=== PATIENT | male | born 1945 | race Two or more races ===

== ENCOUNTER 2020-01-29 12:05 | Inpatient (IN) | payer MEDICAID ==
[~2020-01-29] VITALS: Ht 165.1 cm; Wt 68.0 kg
--- NOTE | 2020-01-29 12:40 | NUR ---
ED Nurse Note: Pt brought into ED by caregiver from home. Pt fell 10 days ago and landed on face per caregiver. Pt since fall has bilateral sided weakness on hands and feet. Pt is alert and ox4, slovak speaking, wants caregiver to trasnlate.
[2020-01-29 12:46] VITALS: BP 122/57
[2020-01-29 13:31] LABS: BASOPHILS % (AUTO) 0.7 % (0.0-2.0); EOSINOPHILS % (AUTO) 2.2 % (0.0-3.0); HEMATOCRIT 38.2 % (42.0-52.0); HEMOGLOBIN 12.4 G/DL (14.2-18.0); LYMPHOCYTES % (AUTO) 20.1 % (20.0-45.0); MEAN CORPUSCULAR VOLUME 94 FL (80-99); MONOCYTES % (AUTO) 6.5 % (1.0-10.0); NEUTROPHILS % (AUTO) 70.5 % (45.0-75.0); PLATELET COUNT 232 K/UL (150-450); RED BLOOD COUNT 4.08 M/UL (4.70-6.10); RED CELL DISTRIBUTION WIDTH 13.7 % (11.6-14.8); WHITE BLOOD COUNT 7.9 K/UL (4.8-10.8)
[2020-01-29 13:43] LABS: ANION GAP 7 mmol/L (5-15); BLOOD UREA NITROGEN 13 mg/dL (7-18); CARBON DIOXIDE 27 MMOL/L (21-32); CHLORIDE 112 MMOL/L (98-107); CREATININE 0.8 MG/DL (0.55-1.30); POTASSIUM 3.4 MMOL/L (3.5-5.1); SODIUM 146 MMOL/L (136-145)
[2020-01-29 13:54] LABS: ALANINE AMINOTRANSFERASE 23 U/L (12-78); ALBUMIN 3.1 G/DL (3.4-5.0); ALBUMIN/GLOBULIN RATIO 0.8 (1.0-2.7); ALKALINE PHOSPHATASE 102 U/L (46-116); ASPARTATE AMINO TRANSFERASE 34 U/L (15-37); BILIRUBIN,TOTAL 0.4 MG/DL (0.2-1.0)
--- NOTE | 2020-01-29 13:54 | Diagnostic Imaging Report ---
Indication: Headache/pain after trauma Technique: Continuous helical CT scanning of the head was performed utilizing automated exposure control without intravenous contrast material. Axial and coronal reconstructions were obtained. Comparison: None CT dose: Total DLP 1045.5 mGycm; CTDI vol 53.4 mGy Findings: There is no acute intracranial hemorrhage, mass effect or cortical edema. The ventricles, cisterns and sulci are prominent consistent with atrophy. Periventricular hypoattenuation is seen, a nonspecific finding. Visualized mastoid air cells and paranasal sinuses are unremarkable. No focal lesions of the bony calvarium or soft tissues of the scalp are seen. IMPRESSION: No evidence of acute intracranial hemorrhage, mass effect or cortical edema. Atrophy and nonspecific periventricular hypoattenuation suggestive of chronic ischemic microvascular changes. No acute skull fracture. The CT scanner at [facility] is accredited by the [employer] and the scans are performed using protocols designed to limit radiation exposure to as low as reasonably achievable to attain images of sufficient resolution adequate for diagnostic evaluation.
--- NOTE | 2020-01-29 14:39 | Diagnostic Imaging Report ---
Indication: Chest pain Technique: XRAY Chest 1v Comparison: None Findings: Heart size and mediastinal contours are within normal limits for AP technique. Other sclerotic calcifications noted in the aortic arch. There is no focal airspace consolidation, pneumothorax or pleural effusion. Degenerative changes in the spine. Osseous structures demonstrate no acute abnormality. Impression: No radiographic evidence of acute cardiopulmonary disease.
--- NOTE | 2020-01-29 14:49 | Emergency Room Report ---
History of Present Illness General Chief Complaint: Generalized Weakness Source: Patient, Caregiver Present Illness HPI 74-year-old male presents to ED for evaluation. Silk Trimmer brought in patient from home. States that 10 days ago patient had a mechanical fall. Complaining of generalized pain to his arms and legs. States he feels dizzy. Pain is dull , 6 out of 10, nonradiating. denies chest pain or shortness of breath. Denies fevers or chills. No other aggravating relieving factors. Denies any associated symptoms Allergies: Coded Allergies: No Known Allergies (Unverified , 01/29/20) COVID-19 Screening Contact w/high risk pt: No Recent Travel to affected area: No Experienced COVID-19 symptoms?: No COVID-19 Testing performed CHICKEN PICKER: No Patient History Past Medical History: HTN Past Surgical History: none Pertinent Family History: none Social History: Denies: smoking, alcohol use, drug use Immunizations: UTD Reviewed Nursing Documentation: PMH: Agreed; PSxH: Agreed Nursing Documentation-PMH Past Medical History: No History, Except For Hx Hypertension: Yes - anemia Review of Systems All Other Systems: negative except mentioned in HPI Physical Exam Vital Signs Date Time Temp Pulse Resp B/P (MAP) Pulse Ox O2 Delivery O2 Flow Rate FiO2 01/29/20 12:16 97.7 52 17 112/53 (72) 98 Room Air 01/29/20 12:46 99 Sp02 EP Interpretation: reviewed, normal General Appearance: no apparent distress, alert, GCS 15, non-toxic Head: normocephalic, atraumatic Eyes: bilateral eye normal inspection, bilateral eye PERRL ENT: hearing grossly normal, normal pharynx, no angioedema, normal voice Neck: full range of motion, supple/symm/no masses Respiratory: chest non-tender, lungs clear, normal breath sounds, speaking full sentences Cardiovascular #1: regular rate, rhythm, no edema Cardiovascular #2: 2+ carotid (R), 2+ carotid (L), 2+ radial (R), 2+ radial (L) , 2+ dorsalis pedis (R), 2+ dorsalis pedis (L) Gastrointestinal: normal bowel sounds, non tender, soft, non-distended, no guarding, no rebound Rectal: deferred Genitourinary: normal inspection, no CVA tenderness Musculoskeletal: back normal, normal range of motion, gait/station normal, tender Neurologic: alert, motor strength/tone normal, oriented x3, sensory intact, responsive, speech normal Psychiatric: judgement/insight normal, memory normal, mood/affect normal, no suicidal/homicidal ideation Reflexes: 3+ bicep (R), 3+ bicep (L), 3+ tricep (R), 3+ tricep (L), 3+ knee (R) , 3+ knee (L) Skin: other - see nursing skin notes Lymphatic: no adenopathy Medical Decision Making Diagnostic Impression: Primary Impression: Episode of generalized weakness Additional Impressions: Unsteady gait Dizziness ER Course Hospital Course 74-year-old male presents with dizziness and unsteady gait after fall. Generalized pain to arms and legs Differential diagnoses include: OK/unstable angina, arrythmia, dehydration, CVA/ TIA Clinical course Patient placed on stretcher. on cardiac rehab nurse. After initial history and physical I ordered labs, EKG, chest x-ray, IVFs, CT Brain, xrays of upper and lower extremities labs reviewed- no leukocytosis, hemoglobin/hematocrit ok, electrolytes okay, troponins negative EKG- junctional ryhthm, twave inversions Chest x-ray- no acute process CT brain-unremarkable Presentation age and comorbidities I do not believe patient can be safely discharged at this time. Because of insurance patient will be transferred I. I feel this is a highly complex case requiring extensive working including EKG/Rhythm strip, Xray/CT/US, Blood/urine lab work, repeat exams while in ED, and administration of strong opiates/narcotics for pain control, admission to hospital or close patient follow up. Diagnosis - episode of generalized weakness, unsteady gait, dizziness transferred in serious condition Labs Test 01/29/20 13:14 White Blood Count 7.9 K/UL (4.8-10.8) Red Blood Count 4.08 M/UL (4.70-6.10) Hemoglobin 12.4 G/DL (14.2-18.0) Hematocrit 38.2 % (42.0-52.0) Mean Corpuscular Volume 94 FL (80-99) Mean Corpuscular Hemoglobin 30.4 PG (27.0-31.0) Mean Corpuscular Hemoglobin Concent 32.5 G/DL (32.0-36.0) Red Cell Distribution Width 13.7 % (11.6-14.8) Platelet Count 232 K/UL (150-450) Mean Platelet Volume 6.6 FL (6.5-10.1) Neutrophils (%) (Auto) 70.5 % (45.0-75.0) Lymphocytes (%) (Auto) 20.1 % (20.0-45.0) Monocytes (%) (Auto) 6.5 % (1.0-10.0) Eosinophils (%) (Auto) 2.2 % (0.0-3.0) Basophils (%) (Auto) 0.7 % (0.0-2.0) Sodium Level 146 MMOL/L (136-145) Potassium Level 3.4 MMOL/L (3.5-5.1) Chloride Level 112 MMOL/L (98-107) Carbon Dioxide Level 27 MMOL/L (21-32) Anion Gap 7 mmol/L (5-15) Blood Urea Nitrogen 13 mg/dL (7-18) Creatinine 0.8 MG/DL (0.55-1.30) Estimat Glomerular Filtration Rate > 60 mL/min (>60) Glucose Level 133 MG/DL (74-106) Calcium Level 8.0 MG/DL (8.5-10.1) Total Bilirubin 0.4 MG/DL (0.2-1.0) Aspartate Amino Transf (AST/SGOT) 34 U/L (15-37) Alanine Aminotransferase (ALT/SGPT) 23 U/L (12-78) Alkaline Phosphatase 102 U/L (46-116) Troponin I 0.019 ng/mL (0.000-0.056) Pro-B-Type Natriuretic Peptide 1039 pg/mL (0-125) Total Protein 7.1 G/DL (6.4-8.2) Albumin 3.1 G/DL (3.4-5.0) Globulin 4.0 g/dL Albumin/Globulin Ratio 0.8 (1.0-2.7) EKG Diagnostic Results Rate: normal Rhythm: NSR ST Segments: no acute changes ASA given to the pt in ED: No Rhythm Strip Diag. Results EP Interpretation: yes Rhythm: NSR, no PVC's, no ectopy Chest X-Ray Diagnostic Results Chest X-Ray Diagnostic Results : Chest X-Ray Ordered: Yes # of Views/Limited/Complete: 1 View Indication: Other - dizziness EP Interpretation: Yes Interpretation: no consolidation, no effusion, no pneumothorax, no acute cardiopulmonary disease Impression: No acute disease Electronically Signed by: Electronically signed by Krishna William MD Other X-Ray Diagnostic Results Other X-Ray Diagnostic Results #1: X-Ray ordered: L ankle # of Views/Limited Vs Complete: 3 View Indication: Pain EP Interpretation: Yes Interpretation: no dislocation, no soft tissue swelling, no fractures Impression: No acute disease Electronically Signed by: Electronically signed by Krishna William MD Other X-Ray Diagnostic Results #2: X-Ray ordered: R ankle # of Views/Limited Vs Complete: 3 View Indication: Pain EP Interpretation: Yes Interpretation: no dislocation, no soft tissue swelling, no fractures Other X-Ray Diagnostic Results #3: X-Ray ordered: L wrist # of Views/Limited Vs Complete: 3 View Indication: Pain EP Interpretation: Yes Interpretation: no dislocation, no soft tissue swelling, no fractures Impression: No acute disease Electronically Signed by: Electronically signed by Krishna William MD Other X-Ray Diagnostic Results #4: X-Ray ordered: R wrist # of Views/Limited Vs Complete: 3 View Indication: Pain EP Interpretation: Yes Interpretation: no dislocation, no soft tissue swelling, no fractures Impression: No acute disease Electronically Signed by: Electronically signed by Krishna William MD CT/MRI/US Diagnostic Results CT/MRI/US Diagnostic Results : Imaging Test Ordered: CT head Impression no acute process Last Vital Signs Date Time Temp Pulse Resp B/P (MAP) Pulse Ox O2 Delivery O2 Flow Rate FiO2 01/29/20 12:46 97.7 58 18 122/57 99 Room Air 01/29/20 12:46 99 Status: improved Disposition: SHORT-TERM HOSP Condition: Serious Referrals: NOT CHOSEN IPA/,REFERRING (PCP) Krishna William MD Jan 29, 2020 14:49
--- NOTE | 2020-01-29 14:54 | Diagnostic Imaging Report ---
Indication: Ankle pain status post injury Technique: 4 views of the right ankle Comparison: None Findings: Bones are demineralized. No acute fractures identified. Ankle mortise is intact on these nonstress views. Imaged portions of the hindfoot grossly unremarkable. No ankle joint effusion. No radiopaque foreign body. There are atherosclerotic vascular calcifications. Impression: No acute fracture or dislocation. Atherosclerotic vascular calcifications.
--- NOTE | 2020-01-29 14:58 | Diagnostic Imaging Report ---
Indication: Wrist pain status post injury Technique: 3 views of the right wrist Comparison: None Findings: Bones are demineralized. No acute fracture or dislocation is identified mild degenerative changes noted at the basal joint and there is also narrowing of the radioscapholunate joint space. There is a 6 mm linear metallic density foreign body noted within the palmar soft tissues of the hand. Correlation with physical exam recommended. There are atherosclerotic gastric calcifications. IMPRESSION: No acute fracture or dislocation. 6 mm metallic density linear foreign body projecting over the soft tissues of the palmar aspect of the hand. Correlation with physical exam recommended.
--- NOTE | 2020-01-29 15:00 | Diagnostic Imaging Report ---
Indication: Wrist pain status post injury Technique: XRAY Wrist Complete L Comparison: None Findings: Bones are demineralized. No acute fracture is identified. There is a well-corticated ossific density projecting adjacent to the tip of the ulna suggesting a chronic ulnar styloid fracture. There are degenerative changes of the basal joint. There are atherosclerotic vascular calcifications. There are multiple linear radiopaque foreign bodies projecting over the soft tissues of the wrist and distal forearm. Correlation with physical exam findings recommended. IMPRESSION: No acute fracture or dislocation. Chronic fracture of the ulnar styloid. Linear radiodensities projecting over the soft tissues of the distal forearm and wrist may represent retained foreign bodies. Correlation with physical exam findings recommended. Atherosclerotic vascular calcifications.
--- NOTE | 2020-01-29 15:02 | Diagnostic Imaging Report ---
Indication: Ankle pain status post injury Technique: 4 views of the left ankle Comparison: None Findings: Bones are demineralized. No acute fractures identified. Ankle mortise is intact on these nonstress views. Small dorsal and plantar calcaneal enthesophytes. Otherwise imaged portions of the hindfoot grossly unremarkable. No ankle joint effusion. No radiopaque foreign body. There are atherosclerotic vascular calcifications. Impression: No acute fracture or dislocation. Atherosclerotic vascular calcifications.
[2020-01-29 15:05] VITALS: BP 127/60
--- NOTE | 2020-01-29 15:54 | NUR ---
ED Nurse Note: COVID swab sent.
[2020-01-29 17:10] VITALS: BP 123/65
[2020-01-29] MEDS ORDERED: FERROUS SULFAT325 MG ORAL (18:12)
[2020-01-29] MEDS ORDERED: ASPIRIN81 MG ORAL (18:12)
[2020-01-29] MEDS ORDERED: LISINOPRIL10 MG ORAL (18:12)
[2020-01-29] MEDS ORDERED: AMLODIPINE BESYL5 MG ORAL (18:12)
[2020-01-29] MEDS ORDERED: ATORVASTATIN CA40 MG ORAL (18:12)
[2020-01-29] MEDS ORDERED: CARVEDILOL3.125 MG ORAL (18:12)
--- NOTE | 2020-01-29 18:24 | NUR ---
ED Nurse Note: Report given Carl SALDANA.
--- NOTE | 2020-01-29 18:35 | NUR ---
NURSE NOTES: Received patient from ER in stable condition. Alert and oriented. Complain of generalized pain /. IV dressing intact and dry. Healed wound on sacral area. Belonging checked. Bed lowest position. Call light within reach. Will continue to monitor.
[2020-01-29 18:45] VITALS: BP 139/77
--- NOTE | 2020-01-29 19:50 | NUR ---
HAND-OFF: Report given to Ant SALDANA. Patient in stable condition.
--- NOTE | 2020-01-29 19:56 | NUR ---
NURSE NOTES: Pt. received from SHANA Henry. Pt. AAOx4, on room, no indications of respiratory distress, no complaints of pain at this time. Iv noted left AC 20 g intact and patent. Skin is intact and wheelchair at the bedside. Message left for Dr. Montgomery regarding admission orders, awaiting return call. Bed is low and locked, side rails x3 up, bed alarm active, and call light in reach.
[2020-01-29 20:00] VITALS: BP 148/65
[2020-01-30] VITALS: BP 154/60
[2020-01-30 04:00] VITALS: BP 123/53
--- NOTE | 2020-01-30 05:34 | NUR ---
NURSE NOTES: Pt. sleeping well, no complaints of pain. Episodes of incontinence. Optifoam applied to sacrum and bilateral heels prophylactically.
[2020-01-30 06:03] LABS: BASOPHILS % (AUTO) 0.9 % (0.0-2.0); EOSINOPHILS % (AUTO) 2.7 % (0.0-3.0); HEMATOCRIT 34.1 % (42.0-52.0); HEMOGLOBIN 11.5 G/DL (14.2-18.0); LYMPHOCYTES % (AUTO) 31.6 % (20.0-45.0); MEAN CORPUSCULAR VOLUME 92 FL (80-99); MONOCYTES % (AUTO) 7.7 % (1.0-10.0); PLATELET COUNT 202 K/UL (150-450); RED BLOOD COUNT 3.71 M/UL (4.70-6.10); RED CELL DISTRIBUTION WIDTH 13.2 % (11.6-14.8); WHITE BLOOD COUNT 6.3 K/UL (4.8-10.8)
[2020-01-30 06:28] LABS: ALANINE AMINOTRANSFERASE 16 U/L (12-78); ALBUMIN 2.9 G/DL (3.4-5.0); ALBUMIN/GLOBULIN RATIO 0.8 (1.0-2.7); ALKALINE PHOSPHATASE 95 U/L (46-116); ANION GAP 8 mmol/L (5-15); ASPARTATE AMINO TRANSFERASE 26 U/L (15-37); BILIRUBIN,TOTAL 0.6 MG/DL (0.2-1.0); BLOOD UREA NITROGEN 12 mg/dL (7-18); CALCIUM 8.5 MG/DL (8.5-10.1); CARBON DIOXIDE 27 MMOL/L (21-32); CHLORIDE 110 MMOL/L (98-107); CHOLESTEROL 77 MG/DL (< 200); CREATININE 0.7 MG/DL (0.55-1.30); HDL CHOLESTEROL 39 MG/DL (40-60); POTASSIUM 3.1 MMOL/L (3.5-5.1); SODIUM 145 MMOL/L (136-145); TRIGLYCERIDES 51 MG/DL (30-150)
--- NOTE | 2020-01-30 07:30 | NUR ---
NURSE NOTES: Patient is in bed awake and able to verbalize needs. Stable Denies pain or SOB. Breathing is even and unlabored. Patient instructed to use call light for assistance, verbalized understanding. All safety measures provided. Patient is in bed in locked and lowest position with call light within reach. All needs met at this time. Will continue to monitor.
--- NOTE | 2020-01-30 07:33 | NUR ---
HAND-OFF: Report given to SHANA Luz.
[2020-01-30 08:00] VITALS: BP 129/55
[2020-01-30] MEDS ORDERED: Lisinopril 20mg tab ORAL SCH (09:00)
[2020-01-30] MEDS: Aspirin Baby 81mg ORAL SCH (09:01)
[2020-01-30] MEDS: Lisinopril 20mg tab ORAL SCH (09:01)
[2020-01-30] MEDS: Enoxaparin 40mg Inj SUBQ SCH (09:03)
--- NOTE | 2020-01-30 09:07 | History & Physical ---
History and Physical History & Physicial Dictation completed on 904 AM Pranav Montgomery MD Jan 30, 2020 09:07
--- NOTE | 2020-01-30 09:08 | General Progress Note ---
Assessment/Plan Assessment/Plan: Full Dictation compltred A/P: 1- Diffuse fatigue 2- Abn BNP Plan : Check LE Dupplex pending Echo Subjective Allergies: Coded Allergies: No Known Allergies (Unverified , 01/29/20) Objective Last 24 Hour Vital Signs Date Time Temp Pulse Resp B/P (MAP) Pulse Ox O2 Delivery O2 Flow Rate FiO2 01/30/20 09:01 129/55 01/30/20 09:01 83 129/55 01/30/20 09:01 83 129/55 01/30/20 08:00 98.2 83 20 129/55 (79) 97 01/30/20 04:00 97.7 61 18 123/53 (76) 97 01/30/20 00:00 98.1 57 19 154/60 (91) 97 01/29/20 22:06 70 148/65 01/29/20 20:00 97.8 70 19 148/65 (92) 98 01/29/20 19:25 97.1 68 19 141/74 99 Room Air 01/29/20 18:49 Room Air 01/29/20 18:45 97.1 64 20 139/77 (97) 98 01/29/20 17:10 97.7 62 20 123/65 99 Room Air 01/29/20 15:05 97.7 59 19 127/60 98 Room Air 01/29/20 12:46 97.7 58 18 122/57 99 Room Air 01/29/20 12:46 58 18 Room Air 99 01/29/20 12:16 97.7 52 17 112/53 (72) 98 Room Air Intake and Output 01/29/20 01/30/20 19:00 07:00 Intake Total 0 ml Balance 0 ml Intake Oral 0 ml Laboratory Tests 01/29/20 13:14: White Blood Count 7.9, Red Blood Count 4.08L, Hemoglobin 12.4L, Hematocrit 38.2L , Mean Corpuscular Volume 94, Mean Corpuscular Hemoglobin 30.4, Mean Corpuscular Hemoglobin Concent 32.5, Red Cell Distribution Width 13.7, Platelet Count 232, Mean Platelet Volume 6.6, Neutrophils (%) (Auto) 70.5, Lymphocytes (% ) (Auto) 20.1, Monocytes (%) (Auto) 6.5, Eosinophils (%) (Auto) 2.2, Basophils ( %) (Auto) 0.7, Sodium Level 146H, Potassium Level 3.4L, Chloride Level 112H, Carbon Dioxide Level 27, Anion Gap 7, Blood Urea Nitrogen 13, Creatinine 0.8, Estimat Glomerular Filtration Rate > 60, Glucose Level 133H, Calcium Level 8.0L , Total Bilirubin 0.4, Aspartate Amino Transf (AST/SGOT) 34, Alanine Aminotransferase (ALT/SGPT) 23, Alkaline Phosphatase 102, Troponin I 0.019, Pro- B-Type Natriuretic Peptide 1039H, Total Protein 7.1, Albumin 3.1L, Globulin 4.0 , Albumin/Globulin Ratio 0.8L 01/30/20 04:50: White Blood Count 6.3, Red Blood Count 3.71L, Hemoglobin 11.5L, Hematocrit 34.1L , Mean Corpuscular Volume 92, Mean Corpuscular Hemoglobin 31.0, Mean Corpuscular Hemoglobin Concent 33.7, Red Cell Distribution Width 13.2, Platelet Count 202, Mean Platelet Volume 7.1, Neutrophils (%) (Auto) 57.0, Lymphocytes (% ) (Auto) 31.6, Monocytes (%) (Auto) 7.7, Eosinophils (%) (Auto) 2.7, Basophils ( %) (Auto) 0.9, Sodium Level 145, Potassium Level 3.1L, Chloride Level 110H, Carbon Dioxide Level 27, Anion Gap 8, Blood Urea Nitrogen 12, Creatinine 0.7, Estimat Glomerular Filtration Rate > 60, Glucose Level 101, Calcium Level 8.5, Total Bilirubin 0.6, Aspartate Amino Transf (AST/SGOT) 26, Alanine Aminotransferase (ALT/SGPT) 16, Alkaline Phosphatase 95, Troponin I 0.026, Pro-B -Type Natriuretic Peptide 1161H, Total Protein 6.5, Albumin 2.9L, Globulin 3.6, Albumin/Globulin Ratio 0.8L, Hemoglobin A1c 7.2H, Triglycerides Level 51, Cholesterol Level 77, LDL Cholesterol 31, HDL Cholesterol 39L, Cholesterol/HDL Ratio 2.0L, Thyroid Stimulating Hormone (TSH) 1.515 Height (Feet): 5 Height (Inches): 5.00 Weight (Pounds): 150 Pranav Montgomery MD Jan 30, 2020 09:08
--- NOTE | 2020-01-30 09:25 | Diagnostic Imaging Report ---
ADDENDUM - Added by Karlos Freeman MD on 01/30/2020 9:29 AM (-06:00) Impression: Cholelithiasis without evidence of acute cholecystitis. EXAM: US Abdomen Complete CLINICAL HISTORY: DIZZY TECHNIQUE: Real-time ultrasound of the abdomen with image documentation. COMPARISON: No relevant prior studies available. FINDINGS: Liver: The liver appears that normal lids. No intrahepatic bile duct dilation. Gallbladder: There is a 1.4 summer stone within the gallbladder without significant gallbladder distention, collateral thickening or pericholecystic fluid. Sonographic Mata's sign is negative. Common bile duct: Unremarkable as visualized. No stones. No dilation. Pancreas: Pancreas appears that normal limits. Kidneys: There are several simple appearing left renal cysts. No further follow-up imaging recommended. The right kidney appears unremarkable. No hydronephrosis identified in either kidney. No stones. Spleen: Not well visualized. Aorta: Unremarkable. No aneurysm. Inferior vena cava: Unremarkable. IMPRESSION: No acute findings in the abdomen.
--- NOTE | 2020-01-30 11:45 | Diagnostic Imaging Report ---
EXAM: US Duplex Bilateral Lower Extremities Veins CLINICAL HISTORY: PAIN TECHNIQUE: Real-time duplex ultrasound scan of the bilateral lower extremity veins integrating B-mode two-dimensional vascular structure, Doppler spectral analysis, color flow Doppler imaging and compression. COMPARISON: No relevant prior studies available. FINDINGS: Right deep veins: Unremarkable. No DVT in the right common femoral, femoral, proximal deep femoral or popliteal veins. The veins demonstrate normal color flow, are normally compressible, with normal phasic flow and/or augmentation response. Right superficial veins: Unremarkable. Left deep veins: Unremarkable. No DVT in the left common femoral, femoral, proximal deep femoral or popliteal veins. The veins demonstrate normal color flow, are normally compressible, with normal phasic flow and/or augmentation response. Left superficial veins: Unremarkable. Soft tissues: No popliteal cyst. IMPRESSION: No evidence of DVT in the visualized venous segments of the bilateral lower extremity.
[2020-01-30] MEDS: metFORMIN 500mg tab ORAL SCH ×2 (11:49→16:44)
[2020-01-30 12:00] VITALS: BP 120/52
--- NOTE | 2020-01-30 12:00 | NUR ---
NURSE NOTES: wounds assessed, RN assisted wound care nurse apply dressings. Redness noted on bilateral heels, dressings applied as directed. Redness on sacrum noted, skin is intact, dressings applied. Optifoam placed on bony prominences.
--- NOTE | 2020-01-30 12:45 | History and Physical Report ---
DATE OF ADMISSION: 01/29/2020 SOURCE OF INFORMATION: Patient and EMR. HISTORY OF PRESENT ILLNESS: The patient is a 74-year-old male with the past medical history of hypertension and hyperlipidemia, who presented with diffuse pain and aches predominantly in the upper abdomen and lower chest for the last couple of days. The patient denies having any surgery in the past. Denies any nausea or vomitus. Denies any fever or chills. Reported that he is single. Denies history of heavy alcohol abuse. PAST MEDICAL AND SURGICAL HISTORY: Including but not limited to hypertension, hyperlipidemia. FAMILY HISTORY: Reviewed and noncontributory. SOCIAL HISTORY: The patient denies history of alcohol abuse, illicit drug abuse, or tobacco use. The patient lives by himself. ALLERGIES: NKDA. MEDICATIONS: Current hospital medications including amlodipine, aspirin, atorvastatin, Coreg. PHYSICAL EXAMINATION: VITAL SIGNS: Blood pressure 110/80, pulse oximetry 98% on room air, pulse rate 52, respiratory rate 17, temperature 97.7. HEAD AND NECK: Atraumatic and normocephalic. CHEST: Clear to auscultation. HEART: S1, S2. Regular rate and rhythm. ABDOMEN: Soft. No organomegaly. MUSCULOSKELETAL: No gross focal motor deficit. NEUROLOGIC: The patient is awake, alert, and oriented x3. IMAGING: Left ankle x-ray is unremarkable. The right ankle x-ray is negative. Chest x-ray dated 01/29/2020, unremarkable. The head CT scan dated 01/29/2020 is unremarkable for acute pathology. Breast x-ray is negative for any fracture. LABORATORY DATA: Labs dated 01/29/2020 shows hemoglobin of 12.4, platelet count of 232,000. Sodium 146, potassium 3.4. A1c of 7.2. ASSESSMENT: 1. Diffuse generalized weakness and pain. 2. History of fall in a poor historian context. 3. Diabetes type 2. 4. Hypokalemia. 5. Abnormal BNP. 6. GI and DVT prophylaxes. PLAN OF CARE: I agree to monitor the patient given the questionable history of fall and unknown etiology for this diffuse pain in this poor historian patient, justify for the monitoring as an inpatient. We will do the potassium supplementation. COMMENT: The time of this dictation does not reflect the actual time of encounter. Jordinammachelita Montgomery M.D. DR: KELSY JOB#: [id number] CC:
--- NOTE | 2020-01-30 14:08 | NUR ---
NURSE NOTES:WOUND CARE NOTES:Pt presented on admission with multiple Pressure Injuries.Pt stated he has been bed bound for approximately one week. Sacral DTPI (L)11cm x (W)9.5cm. Base of wound is maroon, indurated purple areas at r and L sacrum and upper R gluteus. Pt verbalized areas are tender when minimally palpated. Surrounding non-blanching erythema. Non-Blanching erythema with delineated margins L heel(L)1.9cm x (W)2cm. Base of wound is fluctuant.Pt confirmed tenderness when minimally palpated. DTPI R heel (L)2.1cm x (W)2.5cm.. Base of injury is maroon and fluctuant. Pt confirmed heel is tender when minimally palpated. Tx.Plan: Apply Moisture Barrier Paste to sacrum. Cover with Optifoam drsg. Change every 3 days and prn. Apply Cavilon Skin Barrier to both heels. Cover each heel with Optifoam drsg. Change every 7 days and prn. Reposition at least every 2hours pr as tolerated. Off-load heels with pillow. APM/RHINA Mattress overlay. Addendum: 01/30/20 at 1459 by Jett Duran LVN ADDENDUM TO ABOVE WOUND NOTES:Bony protrusions R and L trochanteric areas. NO erythema noted. Cavilon Skin Barrier applied to each trochanters. Each site covered with Optifoam drsg to minimize friction and pressure.
--- NOTE | 2020-01-30 15:12 | NUR ---
CASE MANAGEMENT: INITIAL REVIEW 74YR OLD WHEELED IN BY CAREGIVER FROM [facility] CC: GENERAL WEAKNESS; FELL 10 DAYS AGE SI:WEAKNESS . DIZZINESS 97.7 52 17 112/53 98% ON RA K+ 3.4 CL- 112 BG 133 CA+ 8.0 BNP 1039 ALB 3.1 IS:IVF NS BOLUS X1 COREG PO X1 COVID SWAB- PENDING XRAY Wrist Complete R-No acute fracture or dislocation. 6 mm metallic density linear foreign body projecting over the soft tissues of the palmar aspect of the hand. XRAY Wrist Complete L-No acute fracture or dislocation.Chronic fracture of the ulnar styloid.Linear radiodensities projecting over the soft tissues of the distal forearm and wrist may represent retained foreign bodies.Atherosclerotic vascular calcifications. CT Head no Contrast-No evidence of acute intracranial hemorrhage, mass effect or cortical edema. Atrophy and nonspecific periventricular hypoattenuation suggestive of chronic ischemic microvascular changes. XRAY Chest 1v-No radiographic evidence of acute cardiopulmonary disease. XRAY Ankle Compl Min 3v R- No acute fracture or dislocation. Atherosclerotic vascular calcifications. XRAY Ankle Compl Min 3v L-No acute fracture or dislocation. Atherosclerotic vascular calcifications. \: 3E MED SURG UNIT DCP: [facility] WHEN STABLE CASE MANAGEMENT: REVIEW 01/30/20 SI:WEAKNESS . DIZZINESS 97.5 55 19 120/52 97% ON RA K+ 3.1 CL- 110 HA1C 7.2 BNP 1161 ALB 2.9 IS:K-DUR PO X1 LOVENOX SQ QD ASA PO QD FEOSOL PO QD PROTONIX PO QD NORVASC PO QD COREG PO BID LISINOPRIL PO QD US ABD Complete-No acute findings in the abdomen. Venous Duplex Scan Ziggy Leg- No evidence of DVT in the visualized venous segments of the bilateral lower extremity. \: 3E MED SURG UNIT DCP: [facility] WHEN STABLE PLAN: PENDING ECHO TO REVIEW IMAGING
[2020-01-30 16:00] VITALS: BP 123/50
--- NOTE | 2020-01-30 16:30 | Consultation ---
History of Present Illness General Date patient seen: Jan 30, 2020 Reason for Hospitalization: Generalized Weakness Present Illness HPI 74-year-old male care dependent presents [facility] with generalized weakness and possible fall. On admission identified to have abnormal skin concerns potentially related to fall with injury therefore surgery was called to eval and assist with care. Patient seen, patient evaluated, chart reviewed patient is awake alert responsive but not oriented. He is fairly confused. No nausea vomiting fever chills. Labs reviewed. Imaging reviewed. Allergies: Coded Allergies: No Known Allergies (Unverified , 01/29/20) COVID-19 Screening Contact w/high risk pt: No Recent Travel to affected area: No Experienced COVID-19 symptoms?: No Medication History Scheduled Amlodipine Besylate* (Amlodipine Besylate*), 5 MG ORAL DAILY, (Reported) Aspirin* (Aspirin*), 81 MG ORAL DAILY, (Reported) Atorvastatin Calcium* (Atorvastatin Calcium*), 80 MG ORAL BEDTIME, (Reported) Carvedilol* (Carvedilol*), 3.125 MG ORAL EVERY 12 HOURS, (Reported) Ferrous Sulfate* (Ferrous Sulfate*), 325 MG ORAL DAILY, (Reported) Lisinopril* (Lisinopril*), 20 MG ORAL DAILY, (Reported) Patient History Limited by: medical condition History Provided By: Medical Record, PMD Healthcare decision maker Resuscitation status Advanced Directive on File Past Medical/Surgical History Past Medical/Surgical History: (1) Dizziness (2) Unsteady gait (3) Episode of generalized weakness Review of Systems Review of Symptoms General ROS: no weight loss or fever Psychological ROS: no depression or mood changes, no memory loss Ophthalmic ROS: no visual changes or eye irritation ENT ROS: no nasal congestion, hearing loss, dizziness Allergy and Immunology ROS: no allergic symptoms or urticaria Hematological and Lymphatic ROS: no swollen glands, unusual bleeding or bruising Endocrine ROS: no polyuria, polydipsia, weight changes, temperature intolerance Respiratory ROS: no cough, shortness of breath, or wheezing Cardiovascular ROS: no chest pain or dyspnea on exertion Gastrointestinal ROS: denies abdominal pain, bright red blood in stool. Musculoskeletal ROS: no myalgias or arthralgias Neurological ROS: no TIA or stroke symptoms Dermatological ROS: no new or changing skin lesions, rashes or pruritis Physical Exam Physical Exam General appearance: alert, cooperative, no distress, appears stated age Head: Normocephalic, without obvious abnormality, atraumatic Eyes: conjunctivae/corneas clear. PERRL, EOM's intact. Fundi benign Throat: Lips, mucosa, and tongue normal. Teeth and gums normal Neck: supple, symmetrical, trachea midline, no adenopathy, thyroid: not enlarged, symmetric, no tenderness/mass/nodules, no carotid bruit and no JVD Lungs: clear to auscultation bilaterally Heart: regular rate and rhythm, S1, S2 normal, no murmur, click, rub or gallop Abdomen: soft, non-tender. Bowel sounds normal. No masses, no organomegaly Extremities: extremities normal, atraumatic, no cyanosis or edema Pulses: 2+ and symmetric Skin: Skin color, texture, turgor normal. No rashes or lesions Neurologic: Grossly normal Last 24 Hour Vital Signs Date Time Temp Pulse Resp B/P (MAP) Pulse Ox O2 Delivery O2 Flow Rate FiO2 01/30/20 16:00 97.3 55 20 123/50 (74) 98 01/30/20 12:00 97.5 55 19 120/52 (74) 97 01/30/20 09:01 129/55 01/30/20 09:01 83 129/55 01/30/20 09:01 83 129/55 01/30/20 08:00 98.2 83 20 129/55 (79) 97 01/30/20 04:00 97.7 61 18 123/53 (76) 97 01/30/20 00:00 98.1 57 19 154/60 (91) 97 01/29/20 22:06 70 148/65 01/29/20 20:00 97.8 70 19 148/65 (92) 98 01/29/20 19:25 97.1 68 19 141/74 99 Room Air 01/29/20 18:49 Room Air 01/29/20 18:45 97.1 64 20 139/77 (97) 98 01/29/20 17:10 97.7 62 20 123/65 99 Room Air Intake and Output 01/29/20 01/30/20 19:00 07:00 Intake Total 0 ml Balance 0 ml Intake Oral 0 ml Laboratory Tests Test 01/30/20 04:50 White Blood Count 6.3 K/UL (4.8-10.8) Red Blood Count 3.71 M/UL (4.70-6.10) L Hemoglobin 11.5 G/DL (14.2-18.0) L Hematocrit 34.1 % (42.0-52.0) L Mean Corpuscular Volume 92 FL (80-99) Mean Corpuscular Hemoglobin 31.0 PG (27.0-31.0) Mean Corpuscular Hemoglobin Concent 33.7 G/DL (32.0-36.0) Red Cell Distribution Width 13.2 % (11.6-14.8) Platelet Count 202 K/UL (150-450) Mean Platelet Volume 7.1 FL (6.5-10.1) Neutrophils (%) (Auto) 57.0 % (45.0-75.0) Lymphocytes (%) (Auto) 31.6 % (20.0-45.0) Monocytes (%) (Auto) 7.7 % (1.0-10.0) Eosinophils (%) (Auto) 2.7 % (0.0-3.0) Basophils (%) (Auto) 0.9 % (0.0-2.0) Sodium Level 145 MMOL/L (136-145) Potassium Level 3.1 MMOL/L (3.5-5.1) L Chloride Level 110 MMOL/L (98-107) H Carbon Dioxide Level 27 MMOL/L (21-32) Anion Gap 8 mmol/L (5-15) Blood Urea Nitrogen 12 mg/dL (7-18) Creatinine 0.7 MG/DL (0.55-1.30) Estimat Glomerular Filtration Rate > 60 mL/min (>60) Glucose Level 101 MG/DL (74-106) Hemoglobin A1c 7.2 % (4.3-6.0) H Calcium Level 8.5 MG/DL (8.5-10.1) Total Bilirubin 0.6 MG/DL (0.2-1.0) Aspartate Amino Transf (AST/SGOT) 26 U/L (15-37) Alanine Aminotransferase (ALT/SGPT) 16 U/L (12-78) Alkaline Phosphatase 95 U/L (46-116) Troponin I 0.026 ng/mL (0.000-0.056) Pro-B-Type Natriuretic Peptide 1161 pg/mL (0-125) H Total Protein 6.5 G/DL (6.4-8.2) Albumin 2.9 G/DL (3.4-5.0) L Globulin 3.6 g/dL Albumin/Globulin Ratio 0.8 (1.0-2.7) L Triglycerides Level 51 MG/DL (30-150) Cholesterol Level 77 MG/DL (< 200) LDL Cholesterol 31 mg/dL (<100) HDL Cholesterol 39 MG/DL (40-60) L Cholesterol/HDL Ratio 2.0 (3.3-4.4) L Thyroid Stimulating Hormone (TSH) 1.515 uiU/mL (0.358-3.740) Microbiology Date/Time Source Procedure Growth Status 01/29/20 18:00 Rectum Received Height (Feet): 5 Height (Inches): 5.00 Weight (Pounds): 150 Medications Current Medications Medications (Trade) Dose Ordered Sig/Donny Route PRN Reason Start Time Stop Time Status Last Admin Dose Admin Acetaminophen (Tylenol) 650 mg Q6H PRN ORAL For Pain 01/29/20 21:30 02/28/20 21:29 Amlodipine Besylate (Norvasc) 5 mg DAILY ORAL 01/30/20 09:00 02/29/20 08:59 01/30/20 09:01 Aspirin (ASA) 81 mg DAILY ORAL 01/30/20 09:00 03/15/20 08:59 01/30/20 09:01 Atorvastatin Calcium (Lipitor) 80 mg BEDTIME ORAL 01/30/20 21:00 04/29/20 20:59 Carvedilol (Coreg) 3.125 mg EVERY 12 HOURS ORAL 01/30/20 09:00 02/28/20 21:59 01/30/20 09:01 Enoxaparin Sodium (Lovenox) 40 mg DAILY SUBQ 01/30/20 09:00 04/29/20 08:59 01/30/20 09:03 Ferrous Sulfate (Feosol) 325 mg DAILY ORAL 01/30/20 09:00 04/29/20 08:59 01/30/20 09:01 Lisinopril (PriniviL) 20 mg DAILY ORAL 01/30/20 09:00 02/29/20 08:59 01/30/20 09:01 Metformin HCl (Glucophage) 500 mg TIAC ORAL 01/30/20 11:30 02/29/20 11:29 01/30/20 11:49 Pantoprazole (Protonix) 40 mg DAILY ORAL 01/30/20 09:00 02/29/20 08:59 01/30/20 09:01 Assessment/Plan Problem List: (1) Dizziness ICD Codes: R42 - Dizziness and giddiness SNOMED: 316187668, 468050031 (2) Unsteady gait Assessment & Plan: here is no acute intracranial hemorrhage, mass effect or cortical edema. The ventricles, cisterns and sulci are prominent consistent with atrophy. Periventricular hypoattenuation is seen, a nonspecific finding. Visualized mastoid air cells and paranasal sinuses are unremarkable. No focal lesions of the bony calvarium or soft tissues of the scalp are seen. IMPRESSION: No evidence of acute intracranial hemorrhage, mass effect or cortical edema. Atrophy and nonspecific periventricular hypoattenuation suggestive of chronic ischemic microvascular changes. No acute skull fracture. ICD Codes: R26.81 - Unsteadiness on feet SNOMED: 89930640, 041372101 (3) Episode of generalized weakness ICD Codes: R53.1 - Weakness SNOMED: 81073677 (4) Deep tissue injury Assessment & Plan: Pt presented on admission with multiple Pressure Injuries.Pt stated he has been bed bound for approximately one week. Sacral DTPI (L)11cm x (W)9.5cm. Base of wound is maroon, indurated purple areas at r and L sacrum and upper R gluteus. Pt verbalized areas are tender when minimally palpated. Surrounding non-blanching erythema. Non-Blanching erythema with delineated margins L heel(L)1.9cm x (W)2cm. Base of wound is fluctuant.Pt confirmed tenderness when minimally palpated. DTPI R heel (L)2.1cm x (W)2.5cm.. Base of injury is maroon and fluctuant. Pt confirmed heel is tender when minimally palpated. Tx.Plan: Apply Moisture Barrier Paste to sacrum. Cover with Optifoam drsg. Change every 3 days and prn. Apply Cavilon Skin Barrier to both heels. Cover each heel with Optifoam drsg. Change every 7 days and prn. Reposition at least every 2hours pr as tolerated. Off-load heels with pillow. APM/RHINA Mattress overlay. ICD Codes: T14.8XXA - Other injury of unspecified body region, initial encounter SNOMED: 768560288 Zurdo Golden Jan 30, 2020 16:30
--- NOTE | 2020-01-30 17:30 | NUR ---
NURSE NOTES: Patient on pressure relieving mattress.
--- NOTE | 2020-01-30 19:33 | NUR ---
HAND-OFF: Report given to Cyndee SALDANA. Patient is stable.
--- NOTE | 2020-01-30 19:35 | NUR ---
NURSE NOTES: Patient in bed, awake and alert x4. On room air with no signs of distress or SOB. IV intact and patent. Bed locked and in lowest position. Bed alarm on. Call light in reach. Will follow plan of care.
[2020-01-30 20:00] VITALS: BP 136/60
[2020-01-30] MEDS: Atorvastatin 80mg tab ORAL SCH (21:40)
[2020-01-31] VITALS: BP 137/77
[2020-01-31 04:00] VITALS: BP 143/68
[2020-01-31 05:36] LABS: BASOPHILS % (AUTO) 0.7 % (0.0-2.0); EOSINOPHILS % (AUTO) 2.3 % (0.0-3.0); HEMOGLOBIN 11.4 G/DL (14.2-18.0); LYMPHOCYTES % (AUTO) 23.2 % (20.0-45.0); MEAN CORPUSCULAR VOLUME 92 FL (80-99); MONOCYTES % (AUTO) 6.5 % (1.0-10.0); NEUTROPHILS % (AUTO) 67.3 % (45.0-75.0); PLATELET COUNT 196 K/UL (150-450); RED BLOOD COUNT 3.72 M/UL (4.70-6.10); RED CELL DISTRIBUTION WIDTH 12.9 % (11.6-14.8); WHITE BLOOD COUNT 9.6 K/UL (4.8-10.8)
[2020-01-31 06:04] LABS: ALANINE AMINOTRANSFERASE 17 U/L (12-78); ALBUMIN 2.8 G/DL (3.4-5.0); ALBUMIN/GLOBULIN RATIO 0.8 (1.0-2.7); ALKALINE PHOSPHATASE 93 U/L (46-116); ANION GAP 7 mmol/L (5-15); ASPARTATE AMINO TRANSFERASE 28 U/L (15-37); BILIRUBIN,TOTAL 0.4 MG/DL (0.2-1.0); BLOOD UREA NITROGEN 15 mg/dL (7-18); CALCIUM 8.2 MG/DL (8.5-10.1); CARBON DIOXIDE 27 MMOL/L (21-32); CHLORIDE 106 MMOL/L (98-107); CREATININE 0.6 MG/DL (0.55-1.30); POTASSIUM 3.9 MMOL/L (3.5-5.1); SODIUM 140 MMOL/L (136-145)
[2020-01-31] MEDS: metFORMIN 500mg tab ORAL SCH ×3 (06:41→16:47)
--- NOTE | 2020-01-31 07:30 | NUR ---
NURSE NOTES: Patient is in bed asleep. Stable. Breathing is even and unlabored. No visible signs of distress. On pressure relieving mattress with call light within reach. All safety measures provided. Will continue to monitor.
--- NOTE | 2020-01-31 07:32 | NUR ---
HAND-OFF: Report given to SHANA Luz.
[2020-01-31 08:00] VITALS: BP 127/58
[2020-01-31] MEDS: Lisinopril 20mg tab ORAL SCH (08:18)
[2020-01-31] MEDS: Aspirin Baby 81mg ORAL SCH (08:22)
[2020-01-31] MEDS: Enoxaparin 40mg Inj SUBQ SCH (08:24)
--- NOTE | 2020-01-31 11:10 | General Progress Note ---
Assessment/Plan Assessment/Plan: S; I am ok O: denies pain . poor historian PHYSICAL EXAMINATION: HEAD AND NECK: Atraumatic and normocephalic. CHEST: Clear to auscultation. HEART: S1, S2. Regular rate and rhythm. ABDOMEN: Soft. No organomegaly. MUSCULOSKELETAL: diffue para paresis. Decubitus wound in sacral and calcaneal regeions NEUROLOGIC: The patient is awake, alert, and oriented . Meds and lab: reconciled and reviewed ASSESSMENT: 1. Diffuse generalized weakness and pain. 2. History of fall in a poor historian context. 3. Paraparesis in a poorhistorian pt 4. Diabetes type 2. 4. Hypokalemia. 5. Abnormal BNP. 6. GI and DVT prophylaxes. 7. Decubitus wounds PLAN OF CARE: CT of lumbar and thoracic spine Subjective Allergies: Coded Allergies: No Known Allergies (Unverified , 01/29/20) Objective Last 24 Hour Vital Signs Date Time Temp Pulse Resp B/P (MAP) Pulse Ox O2 Delivery O2 Flow Rate FiO2 01/31/20 08:24 54 127/58 01/31/20 08:22 54 127/58 01/31/20 08:18 127/58 01/31/20 08:00 97.7 54 19 127/58 (81) 99 01/31/20 04:00 98.1 64 18 143/68 (93) 95 01/31/20 00:00 97.8 60 18 137/77 (97) 97 01/30/20 21:40 64 136/60 01/30/20 20:00 99.3 64 20 136/60 (85) 97 01/30/20 16:00 97.3 55 20 123/50 (74) 98 01/30/20 12:00 97.5 55 19 120/52 (74) 97 Intake and Output 01/30/20 01/31/20 19:00 07:00 Intake Total 960 ml Output Total 875 ml Balance 960 ml -875 ml Intake Oral 960 ml Output Urine Total 875 ml Laboratory Tests 01/31/20 04:45: White Blood Count 9.6#, Red Blood Count 3.72L, Hemoglobin 11.4L, Hematocrit 34.0L, Mean Corpuscular Volume 92, Mean Corpuscular Hemoglobin 30.6, Mean Corpuscular Hemoglobin Concent 33.5, Red Cell Distribution Width 12.9, Platelet Count 196, Mean Platelet Volume 6.7, Neutrophils (%) (Auto) 67.3, Lymphocytes (% ) (Auto) 23.2, Monocytes (%) (Auto) 6.5, Eosinophils (%) (Auto) 2.3, Basophils ( %) (Auto) 0.7, Sodium Level 140, Potassium Level 3.9, Chloride Level 106, Carbon Dioxide Level 27, Anion Gap 7, Blood Urea Nitrogen 15, Creatinine 0.6, Estimat Glomerular Filtration Rate > 60, Glucose Level 94, Calcium Level 8.2L, Total Bilirubin 0.4, Aspartate Amino Transf (AST/SGOT) 28, Alanine Aminotransferase (ALT/SGPT) 17, Alkaline Phosphatase 93, Total Protein 6.4, Albumin 2.8L, Globulin 3.6, Albumin/Globulin Ratio 0.8L Height (Feet): 5 Height (Inches): 5.00 Weight (Pounds): 150 Pranav Montgomery MD Jan 31, 2020 11:10
[2020-01-31 12:00] VITALS: BP 114/50
--- NOTE | 2020-01-31 15:00 | Surgery Progress Note ---
Surgery Progress Note Subjective Additional Comments no acute events exam stable comfortable no n/v/f/ c Objective Last 24 Hour Vital Signs Date Time Temp Pulse Resp B/P (MAP) Pulse Ox O2 Delivery O2 Flow Rate FiO2 01/31/20 12:00 98.3 54 19 114/50 (71) 97 01/31/20 08:24 54 127/58 01/31/20 08:22 54 127/58 01/31/20 08:18 127/58 01/31/20 08:00 97.7 54 19 127/58 (81) 99 01/31/20 04:00 98.1 64 18 143/68 (93) 95 01/31/20 00:00 97.8 60 18 137/77 (97) 97 01/30/20 21:40 64 136/60 01/30/20 20:00 99.3 64 20 136/60 (85) 97 01/30/20 16:00 97.3 55 20 123/50 (74) 98 I&O Intake and Output 01/30/20 01/31/20 19:00 07:00 Intake Total 960 ml Output Total 875 ml Balance 960 ml -875 ml Intake Oral 960 ml Output Urine Total 875 ml Dressing: other Wound: other Drains: other Cardiovascular: RSR Respiratory: decreased breath sounds Abdomen: soft, non-tender, present bowel sounds Extremities: no cyanosis Laboratory Tests Test 01/31/20 04:45 White Blood Count 9.6 K/UL (4.8-10.8) # Red Blood Count 3.72 M/UL (4.70-6.10) L Hemoglobin 11.4 G/DL (14.2-18.0) L Hematocrit 34.0 % (42.0-52.0) L Mean Corpuscular Volume 92 FL (80-99) Mean Corpuscular Hemoglobin 30.6 PG (27.0-31.0) Mean Corpuscular Hemoglobin Concent 33.5 G/DL (32.0-36.0) Red Cell Distribution Width 12.9 % (11.6-14.8) Platelet Count 196 K/UL (150-450) Mean Platelet Volume 6.7 FL (6.5-10.1) Neutrophils (%) (Auto) 67.3 % (45.0-75.0) Lymphocytes (%) (Auto) 23.2 % (20.0-45.0) Monocytes (%) (Auto) 6.5 % (1.0-10.0) Eosinophils (%) (Auto) 2.3 % (0.0-3.0) Basophils (%) (Auto) 0.7 % (0.0-2.0) Sodium Level 140 MMOL/L (136-145) Potassium Level 3.9 MMOL/L (3.5-5.1) Chloride Level 106 MMOL/L (98-107) Carbon Dioxide Level 27 MMOL/L (21-32) Anion Gap 7 mmol/L (5-15) Blood Urea Nitrogen 15 mg/dL (7-18) Creatinine 0.6 MG/DL (0.55-1.30) Estimat Glomerular Filtration Rate > 60 mL/min (>60) Glucose Level 94 MG/DL (74-106) Calcium Level 8.2 MG/DL (8.5-10.1) L Total Bilirubin 0.4 MG/DL (0.2-1.0) Aspartate Amino Transf (AST/SGOT) 28 U/L (15-37) Alanine Aminotransferase (ALT/SGPT) 17 U/L (12-78) Alkaline Phosphatase 93 U/L (46-116) Total Protein 6.4 G/DL (6.4-8.2) Albumin 2.8 G/DL (3.4-5.0) L Globulin 3.6 g/dL Albumin/Globulin Ratio 0.8 (1.0-2.7) L Plan Problems: (1) Dizziness (2) Unsteady gait Assessment & Plan: here is no acute intracranial hemorrhage, mass effect or cortical edema. The ventricles, cisterns and sulci are prominent consistent with atrophy. Periventricular hypoattenuation is seen, a nonspecific finding. Visualized mastoid air cells and paranasal sinuses are unremarkable. No focal lesions of the bony calvarium or soft tissues of the scalp are seen. IMPRESSION: No evidence of acute intracranial hemorrhage, mass effect or cortical edema. Atrophy and nonspecific periventricular hypoattenuation suggestive of chronic ischemic microvascular changes. No acute skull fracture. (3) Episode of generalized weakness (4) Deep tissue injury Assessment & Plan: Pt presented on admission with multiple Pressure Injuries.Pt stated he has been bed bound for approximately one week. Sacral DTPI (L)11cm x (W)9.5cm. Base of wound is maroon, indurated purple areas at r and L sacrum and upper R gluteus. Pt verbalized areas are tender when minimally palpated. Surrounding non-blanching erythema. Non-Blanching erythema with delineated margins L heel(L)1.9cm x (W)2cm. Base of wound is fluctuant.Pt confirmed tenderness when minimally palpated. DTPI R heel (L)2.1cm x (W)2.5cm.. Base of injury is maroon and fluctuant. Pt confirmed heel is tender when minimally palpated. Tx.Plan: Apply Moisture Barrier Paste to sacrum. Cover with Optifoam drsg. Change every 3 days and prn. Apply Cavilon Skin Barrier to both heels. Cover each heel with Optifoam drsg. Change every 7 days and prn. Reposition at least every 2hours pr as tolerated. Off-load heels with pillow. APM/RHINA Mattress overlay. Zurdo Golden Jan 31, 2020 15:00
[2020-01-31 16:00] VITALS: BP 123/54
[2020-01-31 18:16] LABS: BILIRUBIN, URINE NEGATIVE (NEGATIVE); COLOR,URINE AMBER; GLUCOSE, URINE (UA) NEGATIVE (NEGATIVE); KETONES,URINE NEGATIVE (NEGATIVE); LEUKOCYTE ESTERASE ,URINE 1+ (NEGATIVE); NITRITE,URINE POSITIVE (NEGATIVE); PH,URINE 7 (4.5-8.0); PROTEIN,URINE NEGATIVE (NEGATIVE); UROBILINOGEN,URINE 1 MG/DL (0.0-1.0)
[2020-01-31 18:18] LABS: APPEARANCE,URINE CLOUDY
[2020-01-31 20:00] VITALS: BP 120/50
--- NOTE | 2020-01-31 20:01 | NUR ---
HAND-OFF: Report given to Natalia SALDANA.Patient is stable.
--- NOTE | 2020-01-31 20:16 | NUR ---
NURSE NOTES: Received report from SHANA Luz. Pt is awake, lying semi-jerez's; comfortably resting. No signs of acute distress noted. Pt denies any pain at this time. AOx3; able to make needs known. Checked IV site; patent and flushed. Sacrum DTI noted; dressing dry and intact. Bilateral lower extremities stage I noted; dressing dry and intact. No bleeding or infiltration noted. Bed at lowest position. Pt on special pressure ulcer mattress. Siderails up x3. Call light within reach. Will continue to monitor.
[2020-01-31] MEDS: Atorvastatin 80mg tab ORAL SCH (20:49)
[2020-02-01] VITALS: BP_SYST 55; BP_SYST 98; BP_DIAS 50
[2020-02-01 04:00] VITALS: BP 122/91
[2020-02-01] MEDS: metFORMIN 500mg tab ORAL SCH ×3 (05:30→17:00)
--- NOTE | 2020-02-01 07:40 | NUR ---
HAND-OFF: Report given to SHANA Mccarthy. Pt is sleeping and in stable condition. Plan of care endorsed.
--- NOTE | 2020-02-01 07:46 | NUR ---
NURSE NOTES: Received report from Natalia RN, rounds made pt sleeping with no s/s distress at RA. bed in low locked position, side rails upX2, call light with in reach, will continue with plan of care
[2020-02-01 08:00] VITALS: BP 123/70
[2020-02-01] MEDS: Lisinopril 20mg tab ORAL SCH (09:18)
[2020-02-01] MEDS: Enoxaparin 40mg Inj SUBQ SCH (09:22)
[2020-02-01] MEDS: Aspirin Baby 81mg ORAL SCH (09:22)
--- NOTE | 2020-02-01 10:25 | General Progress Note ---
Assessment/Plan Assessment/Plan: S; I am ok O: denies pain . poor historian PHYSICAL EXAMINATION: HEAD AND NECK: Atraumatic and normocephalic. CHEST: Clear to auscultation. HEART: S1, S2. Regular rate and rhythm. ABDOMEN: Soft. No organomegaly. MUSCULOSKELETAL: diffue para paresis. Decubitus wound in sacral and calcaneal regeions NEUROLOGIC: The patient is awake, alert, and oriented . Meds and lab: reconciled and reviewed ASSESSMENT: 1. Diffuse generalized weakness and pain. 2. History of fall in a poor historian context. 3. Paraparesis in a poorhistorian pt 4. Diabetes type 2. 4. Hypokalemia. 5. Abnormal BNP. 6. GI and DVT prophylaxes. 7. Decubitus wounds PLAN OF CARE: abnormal CT of lumbar and thoracic spine Subjective Allergies: Coded Allergies: No Known Allergies (Unverified , 01/29/20) Objective Last 24 Hour Vital Signs Date Time Temp Pulse Resp B/P (MAP) Pulse Ox O2 Delivery O2 Flow Rate FiO2 02/01/20 09:18 123/70 02/01/20 09:17 65 123/70 02/01/20 09:17 65 123/70 02/01/20 08:00 98.4 65 18 123/70 (87) 98 02/01/20 04:00 98.2 65 20 122/91 (101) 98 02/01/20 00:00 98.3 66 18 98/50 (66) 97 01/31/20 20:49 70 157/70 01/31/20 20:00 99.2 58 18 120/50 (73) 96 01/31/20 16:00 98.6 53 21 123/54 (77) 95 01/31/20 12:00 98.3 54 19 114/50 (71) 97 Intake and Output 01/31/20 02/01/20 19:00 07:00 Intake Total 240 ml 240 ml Output Total 800 ml 350 ml Balance -560 ml -110 ml Intake Oral 240 ml 240 ml Output Urine Total 800 ml 350 ml Laboratory Tests 01/31/20 18:00: Urine Color Inés, Urine Appearance Cloudy, Urine pH 7, Urine Specific Elmo 1.010, Urine Protein Negative, Urine Glucose (UA) Negative, Urine Ketones Negative, Urine Blood Negative, Urine Nitrite PositiveH, Urine Bilirubin Negative, Urine Ictotest Negative, Urine Urobilinogen 1H, Urine Leukocyte Esterase 1+H, Urine RBC 0, Urine WBC 5-10H, Urine Squamous Epithelial Cells Occasional, Urine Bacteria ManyH Height (Feet): 5 Height (Inches): 5.00 Weight (Pounds): 150 Pranav Montgomery MD Feb 01, 2020 10:25
--- NOTE | 2020-02-01 10:44 | Diagnostic Imaging Report ---
EXAM: CT CT L Spine no Contrast CLINICAL HISTORY: History of fall and back pain. Diffuse weakness. TECHNIQUE: Axial images obtained through the lumbar spine with subsequent sagittal and coronal reformat images. All CT scans at this facility are performed using dose modulation techniques as appropriate to a performed exam including the following: automated exposure control with adjustment of the mA and/or kV according to patient size. RADIATION DOSE: CTDIvol: 7.6 mGy DLP: 225.1 mGy-cm Dose information generated by the CT scanner is available in PACS. COMPARISON: None FINDINGS: There is anatomic alignment. There is slight depression at the superior endplate of T12. A band of sclerosis noted along the superior endplate suggests that this may be an acute injury only slight loss of height is noted estimated at 10-20 %. There is no retropulsion of bone or spinal canal compromise. The other vertebral bodies appear intact. Mild degenerative disc space narrowing and mild spurring at several levels. There is no acute paraspinal soft tissue abnormality. IMPRESSION: SLIGHT DEPRESSION AT THE SUPERIOR ENDPLATE OF T12 WHICH APPEARS ACUTE. ONLY SLIGHT LOSS OF HEIGHT ESTIMATED AT 10-20%. NO RETROPULSION OF BONE OR SPINAL CANAL COMPROMISE.
--- NOTE | 2020-02-01 10:47 | Diagnostic Imaging Report ---
EXAM: CT CT T Spine no Contrast CLINICAL HISTORY: Status post fall with back pain. TECHNIQUE: Axial images obtained through the thoracic spine with subsequent sagittal and coronal reformat images. All CT scans at this facility are performed using dose modulation techniques as appropriate to a performed exam including the following: automated exposure control with adjustment of the mA and/or kV according to patient size. RADIATION DOSE: CTDIvol: 8.8 mGy DLP: 411.1 mGy-cm Dose information generated by the CT scanner is available in PACS. COMPARISON: None FINDINGS: There is anatomic alignment. There is slight superior endplate depression at T12 with subcortical band of sclerosis. Only slight loss of height noted at 10-20%. No retropulsion of bone or spinal canal compromise. The other vertebral bodies of the thoracic spine otherwise appear intact. Diffuse multilevel disc space narrowing and mild spur formation demonstrated. There is no paraspinal soft tissue swelling or hematoma. IMPRESSION: SLIGHT DEPRESSION SUPERIOR ENDPLATE OF T12 WITH MILD 10-20% LOSS OF HEIGHT. NO RETROPULSION OF BONE OR SPINAL CANAL COMPROMISE.
[2020-02-01 12:00] VITALS: BP 135/57
--- NOTE | 2020-02-01 13:43 | Consultation ---
History of Present Illness General Date patient seen: Feb 01, 2020 Chief Complaint: Generalized Weakness Referring physician: Dr. Hackett Reason for Consultation: Sacral pressure ulcer, bilateral heel pressure ulc Present Illness HPI This is a 74 y/o M who lives in an assisted living center. Abut a week ago he sustained a fall which made him bed bound. The patient stated that over the course of the week he developed pain of his heels and also his sacral area. He was seen by General Surgery on admission and found to have sacral and heel pressure ulcers and wound care and P.U. prevention was initiated. The patient reports that since he has been in the hospital he has been turned and repositioned and that all areas are feeling better with less pain. He also has a hodges catheter in and that has kept the sacral area dry. He has also been on a P.U. mattress which he states is comfortable. He said he was on a normal bed in his facility. Allergies: Coded Allergies: No Known Allergies (Unverified , 01/29/20) Medication History Scheduled Amlodipine Besylate* (Amlodipine Besylate*), 5 MG ORAL DAILY, (Reported) Aspirin* (Aspirin*), 81 MG ORAL DAILY, (Reported) Atorvastatin Calcium* (Atorvastatin Calcium*), 80 MG ORAL BEDTIME, (Reported) Carvedilol* (Carvedilol*), 3.125 MG ORAL EVERY 12 HOURS, (Reported) Ferrous Sulfate* (Ferrous Sulfate*), 325 MG ORAL DAILY, (Reported) Lisinopril* (Lisinopril*), 20 MG ORAL DAILY, (Reported) Patient History Healthcare decision maker Resuscitation status Advanced Directive on File Physical Exam General Appearance: WD/WN, no apparent distress Lines, tubes and drains: hodges cath 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 Skin is intact. Foot is warm. Left heel DTPI - the area of discoloration is improved. DTPI now measures 2cm X 2cm and skin is intact. Minimal pain with palpation. Skin is intact. Foot is warm. Sacrum DTPI - the area of discoloration is improved. 8cm X 6 cm. Non fluctuant. gluteal areas also improved. Skin is intact in all areas. Minimal pain with palpation. Last 24 Hour Vital Signs Date Time Temp Pulse Resp B/P (MAP) Pulse Ox O2 Delivery O2 Flow Rate FiO2 02/01/20 12:00 98.6 63 18 135/57 (83) 98 02/01/20 09:18 123/70 02/01/20 09:17 65 123/70 02/01/20 09:17 65 123/70 02/01/20 08:00 98.4 65 18 123/70 (87) 98 02/01/20 04:00 98.2 65 20 122/91 (101) 98 02/01/20 00:00 98.3 66 18 98/50 (66) 97 01/31/20 20:49 70 157/70 01/31/20 20:00 99.2 58 18 120/50 (73) 96 01/31/20 16:00 98.6 53 21 123/54 (77) 95 Intake and Output 01/31/20 02/01/20 19:00 07:00 Intake Total 240 ml 240 ml Output Total 800 ml 350 ml Balance -560 ml -110 ml Intake Oral 240 ml 240 ml Output Urine Total 800 ml 350 ml Laboratory Tests Test 01/31/20 18:00 Urine Color Inés Urine Appearance Cloudy Urine pH 7 (4.5-8.0) Urine Specific [place] 1.010 (1.005-1.035) Urine Protein Negative (NEGATIVE) Urine Glucose (UA) Negative (NEGATIVE) Urine Ketones Negative (NEGATIVE) Urine Blood Negative (NEGATIVE) Urine Nitrite Positive (NEGATIVE) H Urine Bilirubin Negative (NEGATIVE) Urine Ictotest Negative (NEGATIVE) Urine Urobilinogen 1 MG/DL (0.0-1.0) H Urine Leukocyte Esterase 1+ (NEGATIVE) H Urine RBC 0 /HPF (0 - 0) Urine WBC 5-10 /HPF (0 - 0) H Urine Squamous Epithelial Cells Occasional /LPF Urine Bacteria Many /HPF (NONE) H Microbiology Date/Time Source Procedure Growth Status 01/31/20 18:00 External Cath Urine Culture - Preliminary Resulted Height (Feet): 5 Height (Inches): 5.00 Weight (Pounds): 150 Medications Current Medications Medications (Trade) Dose Ordered Sig/Donny Route PRN Reason Start Time Stop Time Status Last Admin Dose Admin Acetaminophen (Tylenol) 650 mg Q6H PRN ORAL For Pain 01/29/20 21:30 02/28/20 21:29 02/01/20 09:19 Amlodipine Besylate (Norvasc) 5 mg DAILY ORAL 01/30/20 09:00 02/29/20 08:59 02/01/20 09:17 Aspirin (ASA) 81 mg DAILY ORAL 01/30/20 09:00 03/15/20 08:59 02/01/20 09:22 Atorvastatin Calcium (Lipitor) 80 mg BEDTIME ORAL 01/30/20 21:00 04/29/20 20:59 01/31/20 20:49 Carvedilol (Coreg) 3.125 mg EVERY 12 HOURS ORAL 01/30/20 09:00 02/28/20 21:59 02/01/20 09:17 Enoxaparin Sodium (Lovenox) 40 mg DAILY SUBQ 01/30/20 09:00 04/29/20 08:59 02/01/20 09:22 Ferrous Sulfate (Feosol) 325 mg DAILY ORAL 01/30/20 09:00 04/29/20 08:59 02/01/20 09:18 Lisinopril (PriniviL) 20 mg DAILY ORAL 01/30/20 09:00 02/29/20 08:59 02/01/20 09:18 Metformin HCl (Glucophage) 500 mg TIAC ORAL 01/30/20 11:30 02/29/20 11:29 02/01/20 11:57 Pantoprazole (Protonix) 40 mg DAILY ORAL 01/30/20 09:00 02/29/20 08:59 02/01/20 09:17 Assessment/Plan Assessment/Plan: Pt with sacral and heel DTPI all improving. Continue to turn and reposition q2 hours as tolerated Continue barrier cream to sacrum and cover with Optifoam dressing. Change q3 days and prn Moisturize feet. Continue Cavilon Skin barrier to both heels and cover with Optifoam dressing. Change q3 days and prn. Off load heels Continue APM/RHINA Mattress overlay Nutrition consult. I also did patient education with the help of a crystal lapper. Pt understands the importance of turning and offloading. He understands that when he returns to the assisted care facility it will be important for him to shift his weight and have the nurses turn him every 2 hours. Also he understands the importance of offloading his heels. Awilda Engel MD Feb 01, 2020 13:43
--- NOTE | 2020-02-01 13:51 | NUR ---
CASE MANAGEMENT: REVIEW 01/31/20 SI:WEAKNESS . DIZZINESS 98.3 54 19 114/50 97% ON RA CA+ 8.2 ALB 2.8 IS:ASA PO QD FEOSOL PO QD PROTONIX PO QD NORVASC PO QD COREG PO BID LISINOPRIL PO QD METFORMIN PO TIAC LIPITOR PO QHS LOVENOX SQ QD \: 3E MED SURG UNIT DCP: TAHMINA TRAMMELL BOARD AND CARE WHEN STABLE CASE MANAGEMENT: REVIEW 02/01/20 SI:WEAKNESS . DIZZINESS 98.4 65 18 123/70 98% ON RA IS:ASA PO QD FEOSOL PO QD PROTONIX PO QD NORVASC PO QD COREG PO BID LISINOPRIL PO QD METFORMIN PO TIAC LIPITOR PO QHS LOVENOX SQ QD CT L Spine no Contrast-SLIGHT DEPRESSION AT THE SUPERIOR ENDPLATE OF T12 WHICH APPEARS ACUTE. ONLY SLIGHT LOSS OF HEIGHT ESTIMATED AT 10-20%. NO RETROPULSION OF BONE OR SPINAL CANAL COMPROMISE. CT T Spine no Contrast-SLIGHT DEPRESSION SUPERIOR ENDPLATE OF T12 WITH MILD 10-20% LOSS OF HEIGHT. NO RETROPULSION OF BONE OR SPINAL CANAL COMPROMISE. \: 3E MED SURG UNIT DCP: TAHMINA TRAMMELL BOARD AND CARE WHEN STABLE PLAN: START ON SOFT DIET PT EVAL AND THERAPY SACRAL WOUND EVAL PATIENT PRESENTING VERY WEAK MD TO REVIEW IMAGING EDUCATE PATIENT ABOUT TURNING NEURO CONSULT
--- NOTE | 2020-02-01 14:20 | NUR ---
CASE MANAGEMENT:NOTE MARY GRACE SPOKE WITH JIMMY RN MARY GRACE FROM INSURANCE MARY GRACE MARQUEZ INQUIRING WHY PATIENT DID NOT TRANSFER SATURDAY MARY GRACE INFORMED JIMMY THAT BASED ON ER NOTE, NO ANSWER WITHIN TWO HOUR FOR INSTRUCTION WHERE NPT GIVEN IN A TIMELY MANOR OR NOT AT ALL MARY GRACE MARQUEZ WILL INFORM OTHER INSULATION HELPER REMA OF VERBAL DISCUSSION P: [phone] F: [phone] (FAX ALL CLINICALS)
--- NOTE | 2020-02-01 14:30 | NUR ---
*_*INSURANCE*_* ALL CLINCIAL AND REVIEWS SENT TO: [facility] P: [phone] F: [phone] REMA BRODY
--- NOTE | 2020-02-01 14:45 | NUR ---
DISCHARGE PLANNING PATIENT IS CAPITATED TO [facility] MARY GRACE CALLED REMA TO CLARIFY IF INSURANCE WANTS PATIENT TO BE TRANSFERRED CM SPOKE WITH REMA; REMA STATED IF PATIENT IS TO BE DISCHARGED TOMORROW THEN NO TRANSFER NEEDED CM ASKED FOR DISCHARGE ORDER FROM PRIMARY MD CM ALSO INFORMED PRIMARY MD THAT A PEER TO PEER NEEDS TO BE DONE IF PATIENT IS EXPECTED TO STAY PAST SATURDAY NO RESPONSE FROM MD AT THIS TIME CM WILL F/U Addendum: 02/01/20 at 1527 by MAREK HERNANDEZ LVN PER DR LACKEY : MRI TO BE DONE TODAY -PENDING RESULTS - ANTICIPATED DC IN AM
[2020-02-01 16:00] VITALS: BP 142/77
[2020-02-01 20:00] VITALS: BP 137/56
[2020-02-01] MEDS: Atorvastatin 80mg tab ORAL SCH (20:24)
--- NOTE | 2020-02-01 20:25 | NUR ---
HAND-OFF: Report given to Yomi SALDANA, pt stable.
--- NOTE | 2020-02-01 20:30 | NUR ---
NURSE NOTES: Report received from SHANA Mccarthy. Patient in stable condition.
--- NOTE | 2020-02-01 21:39 | Surgery Progress Note ---
Surgery Progress Note Subjective Additional Comments no acute events doing well states no complaints poor historian CT noted Objective Last 24 Hour Vital Signs Date Time Temp Pulse Resp B/P (MAP) Pulse Ox O2 Delivery O2 Flow Rate FiO2 02/01/20 20:24 56 131/56 02/01/20 16:00 98.1 59 19 142/77 (98) 98 02/01/20 12:00 98.6 63 18 135/57 (83) 98 02/01/20 09:18 123/70 02/01/20 09:17 65 123/70 02/01/20 09:17 65 123/70 02/01/20 08:00 98.4 65 18 123/70 (87) 98 02/01/20 04:00 98.2 65 20 122/91 (101) 98 02/01/20 00:00 98.3 66 18 98/50 (66) 97 I&O Intake and Output 01/31/20 02/01/20 19:00 07:00 Intake Total 240 ml 240 ml Output Total 800 ml 350 ml Balance -560 ml -110 ml Intake Oral 240 ml 240 ml Output Urine Total 800 ml 350 ml Dressing: other Wound: other Drains: other Cardiovascular: RSR Respiratory: decreased breath sounds Abdomen: soft, non-tender, present bowel sounds Extremities: no edema, no tenderness, no cyanosis Plan Problems: (1) Dizziness (2) Unsteady gait Assessment & Plan: here is no acute intracranial hemorrhage, mass effect or cortical edema. The ventricles, cisterns and sulci are prominent consistent with atrophy. Periventricular hypoattenuation is seen, a nonspecific finding. Visualized mastoid air cells and paranasal sinuses are unremarkable. No focal lesions of the bony calvarium or soft tissues of the scalp are seen. IMPRESSION: No evidence of acute intracranial hemorrhage, mass effect or cortical edema. Atrophy and nonspecific periventricular hypoattenuation suggestive of chronic ischemic microvascular changes. No acute skull fracture. There is anatomic alignment. There is slight depression at the superior endplate of T12. A band of sclerosis noted along the superior endplate suggests that this may be an acute injury only slight loss of height is noted estimated at 10-20 %. There is no retropulsion of bone or spinal canal compromise. The other vertebral bodies appear intact. Mild degenerative disc space narrowing and mild spurring at several levels. There is no acute paraspinal soft tissue abnormality. IMPRESSION: SLIGHT DEPRESSION AT THE SUPERIOR ENDPLATE OF T12 WHICH APPEARS ACUTE. ONLY SLIGHT LOSS OF HEIGHT ESTIMATED AT 10-20%. NO RETROPULSION OF BONE OR SPINAL CANAL COMPROMISE. (3) Episode of generalized weakness (4) Deep tissue injury Assessment & Plan: Pt presented on admission with multiple Pressure Injuries.Pt stated he has been bed bound for approximately one week. Sacral DTPI (L)11cm x (W)9.5cm. Base of wound is maroon, indurated purple areas at r and L sacrum and upper R gluteus. Pt verbalized areas are tender when minimally palpated. Surrounding non-blanching erythema. Non-Blanching erythema with delineated margins L heel(L)1.9cm x (W)2cm. Base of wound is fluctuant.Pt confirmed tenderness when minimally palpated. DTPI R heel (L)2.1cm x (W)2.5cm.. Base of injury is maroon and fluctuant. Pt confirmed heel is tender when minimally palpated. Tx.Plan: Apply Moisture Barrier Paste to sacrum. Cover with Optifoam drsg. Change every 3 days and prn. Apply Cavilon Skin Barrier to both heels. Cover each heel with Optifoam drsg. Change every 7 days and prn. Reposition at least every 2hours pr as tolerated. Off-load heels with pillow. APM/RHINA Mattress overlay. Zurdo Golden Feb 01, 2020 21:39
[2020-02-02] VITALS (7 sets, daily range): BP systolic 114–157; BP diastolic 50–65
[2020-02-02] MEDS: metFORMIN 500mg tab ORAL SCH ×3 (06:30→16:37)
--- NOTE | 2020-02-02 07:40 | NUR ---
NURSE NOTES: WALKING ROUNDS DONE WITH NIGHT RN. PATIENT ASLEEP BUT AROUSABLE. DISCUSSED PLAN OF CARE FOR THE DAY WITH PATIENT. ACKNOWLEDGED UNDERSTANDING. PATIENT DENIES PAIN AT THIS TIME. WILL CONTINUE TURN SCHEDULE Q2H ON SHIFT. BED IN LOW AND LOCKED POSTION, CALL LIGHT WITHIN REACH. BED ALARM ON.
[2020-02-02] MEDS: Aspirin Baby 81mg ORAL SCH (09:47)
[2020-02-02] MEDS: Lisinopril 20mg tab ORAL SCH (09:48)
[2020-02-02] MEDS: Enoxaparin 40mg Inj SUBQ SCH (09:50)
--- NOTE | 2020-02-02 11:48 | NUR ---
*-* INSURANCE *-* ALL CLINICALS AND REVIEWS HAVE BEEN FAXED TO: [facility]SE PRACTITIONER: JIMMY Lowe P:[phone] F:[phone]
--- NOTE | 2020-02-02 12:29 | General Progress Note ---
Assessment/Plan Assessment/Plan: S; I am ok O: denies pain . poor historian PHYSICAL EXAMINATION: HEAD AND NECK: Atraumatic and normocephalic. CHEST: Clear to auscultation. HEART: S1, S2. Regular rate and rhythm. ABDOMEN: Soft. No organomegaly. MUSCULOSKELETAL: weakness in lower extremities. Decubitus wound in sacral and calcaneal regeions NEUROLOGIC: The patient is awake, alert, and oriented . Meds and lab: reconciled and reviewed ASSESSMENT: 1. Diffuse generalized weakness and pain. 2. History of fall in a poor historian context. 3. Paraparesis in a poorhistorian pt 4. Diabetes type 2. 4. Hypokalemia. 5. Abnormal BNP. 6. GI and DVT prophylaxes. 7. Decubitus wounds PLAN OF CARE: abnormal CT of lumbar and thoracic spine Pending MRI Subjective Allergies: Coded Allergies: No Known Allergies (Unverified , 01/29/20) Objective Last 24 Hour Vital Signs Date Time Temp Pulse Resp B/P (MAP) Pulse Ox O2 Delivery O2 Flow Rate FiO2 02/02/20 11:58 98.1 59 18 114/50 (71) 98 02/02/20 09:48 123/65 02/02/20 09:47 70 123/65 02/02/20 09:47 70 123/65 02/02/20 09:00 Room Air 02/02/20 08:00 98.3 70 19 123/65 (84) 98 02/02/20 04:00 98.5 62 20 129/54 (79) 99 02/02/20 00:00 99.0 61 20 130/57 (81) 98 02/01/20 21:00 Room Air 02/01/20 20:24 56 131/56 02/01/20 20:00 98.3 56 19 137/56 (83) 98 02/01/20 16:00 98.1 59 19 142/77 (98) 98 Intake and Output 02/01/20 02/02/20 19:00 07:00 Intake Total 150 ml Balance 150 ml Other 150 ml Height (Feet): 5 Height (Inches): 5.00 Weight (Pounds): 150 Pranav Montgomery MD Feb 02, 2020 12:29
--- NOTE | 2020-02-02 12:42 | NUR ---
RD ASSESSMENT & RECOMMENDATIONS SEE CARE ACTIVITY FOR COMPLETE ASSESSMENT DAILY ESTIMATED NEEDS: Needs based on Wounds 58.6kg 30-35 kcals/kg 9502-0964 total kcals 1.25-1.5 g protein/kg 73-88 g total protein 25-30 mL/kg 2861-4400 total fluid mLs NUTRITION DIAGNOSIS: Increased kcal and pro needs r/t wound care as evidenced by pt w/ sacral DTPI, non-Blanching erythema, DTPI R heel. 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 6) Rec bed side BG for eval of glycemic control.
--- NOTE | 2020-02-02 13:28 | Diagnostic Imaging Report ---
EXAM: MRI MRI T Spine no Contrast COMPARISON: CT thoracic spine 02/01/2020 HISTORY: Back pain TECHNIQUE: MR scanning of the thoracic spine includes sagittal T1, T2 and axial T1 and T2 sequences. FINDINGS: Alignment is anatomic. MRI confirms slight depression of the superior endplate of T12 and mild loss of height. There is a band of subcortical marrow edema subjacent to the superior endplate. Findings consistent with subacute fracture of the superior endplate. The rest of the thoracic vertebral bodies otherwise retain normal height and signal. No fracture, bony lesion or erosion. Disc desiccation and disc space narrowing noted at several levels. Ridging osteophyte identified at T11-12. There is no significant disc bulging or spinal stenosis. The spinal cord is normal in caliber and signal throughout. IMPRESSION: SUBACUTE DEPRESSION SUPERIOR ENDPLATE OF T12 WITH MILD RESIDUAL MARROW EDEMA. MILD LOSS OF HEIGHT IS NO RETROPULSION OF BONE OR SPINAL CANAL COMPROMISE.
--- NOTE | 2020-02-02 14:14 | NUR ---
NURSE NOTES: PATIENT REMAINS STABLE. TURN SCHEDULE IN PROGRESS. DENIES PAIN. BED IN LOW AND LOCKED POSITION. BED ALARM ON. CALL LIGHT WITHIN REACH.
--- NOTE | 2020-02-02 16:06 | NUR ---
NURSE NOTES: NOTED PATIENT HAS NOT VOIDED TODAY. BLADDER SCAN DONE. NOTED 707 MLS IN BLADDER. PATIENT DENIES ANY PAIN OR DISCOMFORT TO ABDOMINAL AREA. PLACED CALL TO DR. LACKEY. AWAITING RETURN CALL.
--- NOTE | 2020-02-02 16:08 | NUR ---
NURSE NOTES: CALL RECEIVED . WILL PLACE MADISON AND START FLOMAX.
--- NOTE | 2020-02-02 16:15 | NUR ---
NURSE NOTES: PLACED 16FR. MADISON CATHETER. OUTPUT >700 MLS OF DARK [place] URINE. PATIENT ASYMPTOMATIC. ABD R/S/NT.
[2020-02-02] MEDS: Tamsulosin 0.4mg cap ORAL SCH ×2 (16:37→20:13)
--- NOTE | 2020-02-02 16:59 | NUR ---
NURSE NOTES: NEW MED ORDER FLOMAX 0.4 MG PO GIVEN. PER DR. DARYA MD AT FACILITY WILL CONTINUE MEDICATION.
--- NOTE | 2020-02-02 17:30 | NUR ---
NURSE NOTES: Given discharge instruction and verbalized understanding. Not able to sign discharge instruction and belonging paper due to weakness on arms. Wound picture taken.
--- NOTE | 2020-02-02 18:19 | Surgery Progress Note ---
Surgery Progress Note Subjective Symptoms: improved, tolerating diet, passing flatus Additional Comments MRI noted Objective Last 24 Hour Vital Signs Date Time Temp Pulse Resp B/P (MAP) Pulse Ox O2 Delivery O2 Flow Rate FiO2 02/02/20 15:58 98.0 69 18 119/63 (81) 99 02/02/20 11:58 98.1 59 18 114/50 (71) 98 02/02/20 09:48 123/65 02/02/20 09:47 70 123/65 02/02/20 09:47 70 123/65 02/02/20 09:00 Room Air 02/02/20 08:00 98.3 70 19 123/65 (84) 98 02/02/20 04:00 98.5 62 20 129/54 (79) 99 02/02/20 00:00 99.0 61 20 130/57 (81) 98 02/01/20 21:00 Room Air 02/01/20 20:24 56 131/56 02/01/20 20:00 98.3 56 19 137/56 (83) 98 I&O Intake and Output 02/01/20 02/02/20 19:00 07:00 Intake Total 150 ml Balance 150 ml Other 150 ml Cardiovascular: RSR Respiratory: clear Abdomen: soft, non-tender, present bowel sounds Extremities: no edema, no cyanosis Plan Problems: (1) Dizziness (2) Unsteady gait Assessment & Plan: here is no acute intracranial hemorrhage, mass effect or cortical edema. The ventricles, cisterns and sulci are prominent consistent with atrophy. Periventricular hypoattenuation is seen, a nonspecific finding. Visualized mastoid air cells and paranasal sinuses are unremarkable. No focal lesions of the bony calvarium or soft tissues of the scalp are seen. IMPRESSION: No evidence of acute intracranial hemorrhage, mass effect or cortical edema. Atrophy and nonspecific periventricular hypoattenuation suggestive of chronic ischemic microvascular changes. No acute skull fracture. There is anatomic alignment. There is slight depression at the superior endplate of T12. A band of sclerosis noted along the superior endplate suggests that this may be an acute injury only slight loss of height is noted estimated at 10-20 %. There is no retropulsion of bone or spinal canal compromise. The other vertebral bodies appear intact. Mild degenerative disc space narrowing and mild spurring at several levels. There is no acute paraspinal soft tissue abnormality. IMPRESSION: SLIGHT DEPRESSION AT THE SUPERIOR ENDPLATE OF T12 WHICH APPEARS ACUTE. ONLY SLIGHT LOSS OF HEIGHT ESTIMATED AT 10-20%. NO RETROPULSION OF BONE OR SPINAL CANAL COMPROMISE. SUBACUTE DEPRESSION SUPERIOR ENDPLATE OF T12 WITH MILD RESIDUAL MARROW EDEMA. MILD LOSS OF HEIGHT IS NO RETROPULSION OF BONE OR SPINAL CANAL COMPROMISE. (3) Episode of generalized weakness (4) Deep tissue injury Assessment & Plan: Pt presented on admission with multiple Pressure Injuries.Pt stated he has been bed bound for approximately one week. Sacral DTPI (L)11cm x (W)9.5cm. Base of wound is maroon, indurated purple areas at r and L sacrum and upper R gluteus. Pt verbalized areas are tender when minimally palpated. Surrounding non-blanching erythema. Non-Blanching erythema with delineated margins L heel(L)1.9cm x (W)2cm. Base of wound is fluctuant.Pt confirmed tenderness when minimally palpated. DTPI R heel (L)2.1cm x (W)2.5cm.. Base of injury is maroon and fluctuant. Pt confirmed heel is tender when minimally palpated. Tx.Plan: Apply Moisture Barrier Paste to sacrum. Cover with Optifoam drsg. Change every 3 days and prn. Apply Cavilon Skin Barrier to both heels. Cover each heel with Optifoam drsg. Change every 7 days and prn. Reposition at least every 2hours pr as tolerated. Off-load heels with pillow. APM/RHINA Mattress overlay. Zurdo Golden Feb 02, 2020 18:19
--- NOTE | 2020-02-02 18:28 | NUR ---
NURSE NOTES: PATIENT WILL DISCHARGE TO [facility] WITH MADISON IN PLACE PER MD ORDER.
--- NOTE | 2020-02-02 19:30 | NUR ---
HAND-OFF: Report given to SAQIB ZAVALETA RN.
--- NOTE | 2020-02-02 19:30 | NUR ---
NURSE NOTES: Received report from SHANA Ramos. Patient in stable condition. All discharge paperwork done and at the bedside. Belongings are with patient. Ambulance was called for pickup to send patient to [facility] and care. Patient will be sent out with hodges catheter in place. Board and care notified of patient's discharge. Will follow up as needed.
[2020-02-02] MEDS: Atorvastatin 80mg tab ORAL SCH (20:18)
--- NOTE | 2020-02-02 20:30 | NUR ---
NURSE NOTES: Patient was picked up by the ambulance to be brought to [facility] and Care Room 3. Chucho, caregiver, was called to let know that patient will be coming. Gave contact number to EMT upon report. VS within normal limits and patient stable otherwise. All belongings brought with the patient and sent with ambulance.
--- NOTE | 2020-02-03 15:57 | NUR ---
*-* NO DISCHARGE SUMMARY IN THE SYSTEM UNABLE TO FAX TO INS ID *-*
--- NOTE | 2020-02-04 10:25 | Discharge Summary ---
Discharge Summary Discharge Summary _ DATE OF ADMISSION: 01/29/2020 DATE OF DISCHARGE: 02/02/2020 DISCHARGED BY: Dr Montgomery REASON FOR ADMISSION: 74 years old male with past medical history of hypertension, diabetes mellitus, presented to emergency room for evaluation from home. Apparently 10 days ago patient had a mechanical fall. Patient complained of generalized pain in his arms and legs. Patient reported feeling dizzy. Pain reported as dull ,nonradiating ,6 out of 10. Patient denied chest pain or shortness of breath. Patient denied fever or chills. Upon evaluation chest x-ray revealed no acute cardiopulmonary pathology. CT of the head revealed no acute intracranial pathology. Laboratory work-up revealed no leukocytosis, hemoglobin 12.4 ,hematocrit 38.2, platelet counts 232. Potassium 3.4. BUN 13, creatinine 0.8 , stable renal other electrolytes. Glucose 133. Troponin 0.019, pro BNP 1039. Albumin 3.1. X-ray of the right wrist and left wrist reveal no acute fracture or dislocation. Chronic fracture of the ulnar styloid left wrist noted. X-ray of the right and left ankle revealed no acute fracture or dislocation. Patient subsequently admitted for further management . CONSULTANTS: surgery Dr. Golden plastic surgery Dr. Blandon [facility] COURSE: [] Patient admitted to medical surgical floor. Patient started on gentle IV hydration. Pain management was addressed. Supportive care provided. Potassium was replaced. DVT and GI prophylaxis provided. Blood sugar was managed with metformin ; hemoglobin A1c 7.2. Diabetic diet and diabetic teaching provided. Antiplatelet therapy with aspirin probe and statin continued. Blood pressure was managed with calcium channel charisma , beta-charisma and MEGGAN inhibitor , and remained stable. Echocardiogram demonstrated preserved ejection fraction. Aortic stenosis noted . Right ventricular systolic pressure of 23. Venous duplex bilateral lower extremity revealed no evidence of acute DVT. CT scan of the thoracic spine revealed slight depression superior endplate of T12 with mild 10 to 20% loss of height. No retropulsion of bone or spinal canal compromise. CT spine of the lumbar spine revealed slight depression at the superior endplate of T12 , which appeared to be acute, only slight loss of height estimated at 10 to 20%. No retropulsion of bone or spinal canal compromise. Patient subsequently undergone thoracic spine MRI , which revealed subacute depression superior endplate of T12 with mild residual marrow edema and mild loss of height. No retropulsion of bone or spinal canal compromise. Fall precautions maintained . Patient was working with physical therapist. Wound care for multiply pressure injury ,present on admission, provided as per surgeon recommendation. Continue wound care at the facility. Patient clinically stabilized and was ready for transfer back to [facility] for continuation of care. FINAL DIAGNOSES: Diffuse generalized weakness and pain Status post fall Paraparesis Diabetes mellitus type 2 Hypokalemia Multiply pressure injury, present on admission DISCHARGE MEDICATIONS: See Medication Reconciliation list. DISCHARGE INSTRUCTIONS: Patient was discharged to [facility]. Follow-up as primary care provider in 1 week I have been assigned to dictate discharge summary for this account. I was not involved in the patient's management. Sandra Silva NP Feb 04, 2020 10:25
--- NOTE | 2020-02-04 16:59 | NUR ---
*-* INSURANCE *-* d/c summary has been faxed [facility] MANAGER: JIMMY Lowe P:[phone] F:[phone]
== END 2020-02-02 20:30 | disposition short-term general hospital (02) | DRG 351 ==
LOC: EMR 12:40 → 3E 15:45 → EDBEDREQ 18:09
DX: M62.81 Muscle weakness (generalized) (principal); E87.6 Hypokalemia; E11.9 Type 2 diabetes mellitus without complications; Z91.81 History of falling; I10 Essential (primary) hypertension; R26.81 Unsteadiness on feet; G82.20 Paraplegia, unspecified; Z79.82 Long term (current) use of aspirin; L89.156 Pressure-induced deep tissue damage of sacral region; L89.616 Pressure-induced deep tissue damage of right heel; L89.626 Pressure-induced deep tissue damage of left heel; S52.612D Displaced fracture of left ulna styloid process, subsequent encounter for closed fracture with routine healing; X58.XXXD Exposure to other specified factors, subsequent encounter; R42 Dizziness and giddiness
CPT/HCPCS: 36415; 70450; 71045; 72128; 72131; 72146; 76700; 80053; 80061; 81001; 83036; 83880; 84443; 84484; 85025; 87081; 87086; 87181; 93005; 93306; 93970; 99285; J8499; U0002